=== PATIENT | male | born 1960 | race Caucasian/White ===

== ENCOUNTER 2020-12-31 09:36 | Emergency (ER) | payer BC ==
[~2020-12-31] VITALS: Ht 175.3 cm; Wt 81.8 kg
[~2020-12-31 09:36] MED LIST: HYDR-4353 PO
--- NOTE | 2020-12-31 09:48 | NUR ---
dr marvin at bedside.
[2020-12-31] MEDS ORDERED: LIDOcaine 1% 30ml preserv. free vial IJ ONE (09:55)
[2020-12-31] MEDS ORDERED: ceFAZolin 1gm IM kit IM ONE (09:55)
[2020-12-31] MEDS ORDERED: TETanus/Pertussis (Acell)/Diphther VAC/PF (Tdap-Adult) 0.5ml syringe IMVAC ONE (09:55)
[2020-12-31] MEDS ORDERED: NO HOME MEDS (11:09)
[2020-12-31 11:35] LABS: BASOPHILS % (AUTO) 0.4 % (0-1); EOSINOPHILS # (AUTO) 0.1 X10'3 (0-0.9); EOSINOPHILS % (AUTO) 1.4 % (0-6); HEMATOCRIT 44.7 % (42.0-52.0); HEMOGLOBIN 14.9 g/dl (14.0-17.9); LYMPHOCYTES # (AUTO) 0.8 X10'3 (1.1-4.8); LYMPHOCYTES % (AUTO) 11.1 % (21-51); MEAN CORPUSCULAR HEMOGLOBIN 29.5 PG (27.0-31.0); MEAN CORPUSCULAR HGB CONC 33.4 g/dL (33.0-36.5); MEAN CORPUSCULAR VOLUME 88.4 FL (78-98); MEAN PLATELET VOLUME 7.8 FL (7.4-10.4); MONOCYTES # (AUTO) 0.4 X10'3 (0-0.9); MONOCYTES % (AUTO) 4.7 % (2-12); NEUTROPHILS # (AUTO) 6.1 X10'3 (1.8-7.7); NEUTROPHILS % (AUTO) 82.4 % (42-75); PLATELET COUNT 216 X10'3 (140-440); RED BLOOD COUNT 5.06 X10'6 (4.70-6.10); RED CELL DISTRIBUTION WIDTH 14.6 % (11.5-14.5); WHITE BLOOD COUNT 7.4 X10'3 (4.5-11.0)
[2020-12-31 12:01] LABS: ALANINE AMINOTRANSFERASE 69 U/L (12-78); ALBUMIN 3.7 G/DL (3.4-5.0); ALKALINE PHOSPHATASE 90 IU/L (46-116); ANION GAP 10 (8-16); ASPARTATE AMINO TRANSFERASE 41 U/L (10-37); BILIRUBIN,TOTAL 0.4 MG/DL (0.1-1.0); BLOOD UREA NITROGEN 18 MG/DL (7-18); CALCIUM 8.7 MG/DL (8.5-10.1); CHLORIDE 105 MMOL/L (99-107); GLUCOSE 111 MG/DL (70-104); POTASSIUM 4.1 MMOL/L (3.5-5.1); SODIUM 141 MMOL/L (135-145); TOTAL CARBON DIOXIDE 26.2 MMOL/L (24-32); TOTAL PROTEIN 7.3 G/DL (6.4-8.2); eGFR 87 ML/MIN
[2020-12-31] MEDS ORDERED: LIDOcaine 0.5% (5mg/ml) 50ml vial ONE (14:29)
[2020-12-31] MEDS ORDERED: fentaNYL/PF 50MCG/1 ML 2ML syringe ONE ×2 (14:31→14:51)
[2020-12-31] MEDS ORDERED: midazolam 2 mg/2 ml injection ONE ×2 (14:31→14:54)
[2020-12-31] MEDS ORDERED: BUPIVAcaine/PF 2.5mg/ml (0.25%) 10ml vial ONE (15:15)
[2020-12-31] MEDS ORDERED: hydrALAZINE 20mg/ml inj. IV ONE (15:22)
[2020-12-31] MEDS ORDERED: propofol inj 20 ML IV ONE (15:22)
[2020-12-31 15:30] VITALS: BP 116/75
--- NOTE | 2020-12-31 15:30 | NUR ---
Received from OR via BED, accompanied by Anesthesiologist DR CUMMINGS and report given by Anesthesiolgist. PATIENT A&OX4, DENIES PAIN, V/S WNL, NEUROVASCULAR CHECKS INTACT, 20G PIV LUE, SCD ON, SPLINT DRESSING TO RIGHT WRIST/HAND CDI ELEVATED WITH ICEBAG APPLIED.
[2020-12-31 15:40] VITALS: BP 119/74
[2020-12-31] MEDS ORDERED: morphine 2 MG/ML inj. syringe IV PRN (15:40)
[2020-12-31] MEDS ORDERED: proCHLORperazine 10 MG/2 ml inj IV PRN (15:40)
[2020-12-31] MEDS ORDERED: morphine 4 MG/ML inj SYRINge IV PRN (15:40)
[2020-12-31] MEDS ORDERED: ringers solution, lacted 1,000 ML IV SCH (15:40)
[2020-12-31] MEDS ORDERED: ondansetron/PF 4mg/2ml inj IV PRN (15:40)
[2020-12-31] MEDS ORDERED: meperidine/PF 25mg/ml syringe IV PRN ×3 (15:40)
[2020-12-31 15:50] VITALS: BP 121/79
[2020-12-31 16:00] VITALS: BP 123/74
[2020-12-31 16:10] VITALS: BP 133/71
--- NOTE | 2020-12-31 16:10 | NUR ---
PATIENT A&OX4, DENIES PAIN, V/S WNL, NEUROVASCULAR CHECKS INTACT, 20G PIV LUE D/C, SCD OFF, SPLINT/ DRESSING TO RIGHT WRIST CDI ELEVATED WITH ICEBAG APPLIED. I HAVE REVIEWED D/C INSTRUCTIONS WITH PATIENT AND FAMILY AND THEY HAVE VERBALIZED UNDERSTANDING. PATIENT D/C HOME WITH ALL BELONGINGS AND FAMILY GAVE TRANSPORT HOME.
== END 2020-12-31 16:10 | disposition home or self-care (01) ==
LOC: ER 09:36
DX: S62.620A Displaced fracture of middle phalanx of right index finger, initial encounter for closed fracture (principal); S61.210A Laceration without foreign body of right index finger without damage to nail, initial encounter; S61.212A Laceration without foreign body of right middle finger without damage to nail, initial encounter; Z20.822 Contact with and (suspected) exposure to COVID-19; G89.29 Other chronic pain; Z20.3 Contact with and (suspected) exposure to rabies; Z98.890 Other specified postprocedural states; Z87.442 Personal history of urinary calculi; Z88.1 Allergy status to other antibiotic agents; Z88.8 Allergy status to other drugs, medicaments and biological substances; X58.XXXA Exposure to other specified factors, initial encounter; Y93.89 Activity, other specified; Y92.89 Other specified places as the place of occurrence of the external cause; Y99.8 Other external cause status
CPT/HCPCS: 26756; 26951; 36415; 73140; 80053; 85025; 87635; 90471; 90715; 93005; 96372; 99285; C1713; C9803; J0360; J0690; J2001; J2250; J2704; J3010; J3490; A4215; A4615; A7000

== ENCOUNTER 2021-04-30 15:19 | Inpatient (IN) | payer BC, OTHER ==
[~2021-04-30] VITALS: Ht 175.3 cm; Wt 82.1 kg
[~2021-04-30 15:19] MED LIST changes: -HYDR-4353 PO; +LIDOcaine 2% (20 mg/ml) 5ml cardiac syringe ONE; +MAGNESIUM SULFATE 4 MEQ/ML (5gm/10ml) injection ONE; +NO HOME MEDS; +NORepinephrine 1 mg/ml inj IV ONE; +albumin (human) 25% 100 ML IV solution IV ONE; +aminocaproic acid 250 MG/1 ML inj. ONE; +calcium chloride 100 MG/1 ML inj IV ONE; +heparin 1,000 units/ml 10ml inj ONE; +heparin 10,000 units/1 ML INJ ONE; +methylPREDNISolone sod succ 1000mg vial ONE; +papaverine 30 mg/ml 2ml inj. ONE; +sodium bicarbonate (8.4%) 1 mEq/ml syringe ONE
[2021-04-30 15:45] LABS: BASOPHILS % (AUTO) 0.6 % (0-1); EOSINOPHILS # (AUTO) 0.2 X10'3 (0-0.9); EOSINOPHILS % (AUTO) 2.3 % (0-6); HEMATOCRIT 43.9 % (42.0-52.0); HEMOGLOBIN 14.9 g/dl (14.0-17.9); LYMPHOCYTES # (AUTO) 1.5 X10'3 (1.1-4.8); LYMPHOCYTES % (AUTO) 21.2 % (21-51); MEAN CORPUSCULAR HEMOGLOBIN 30.2 PG (27.0-31.0); MEAN CORPUSCULAR HGB CONC 33.8 g/dL (33.0-36.5); MEAN CORPUSCULAR VOLUME 89.3 FL (78-98); MEAN PLATELET VOLUME 7.8 FL (7.4-10.4); MONOCYTES # (AUTO) 0.9 X10'3 (0-0.9); MONOCYTES % (AUTO) 13.3 % (2-12); NEUTROPHILS # (AUTO) 4.3 X10'3 (1.8-7.7); NEUTROPHILS % (AUTO) 62.6 % (42-75); PLATELET COUNT 240 X10'3 (140-440); RED BLOOD COUNT 4.92 X10'6 (4.70-6.10); RED CELL DISTRIBUTION WIDTH 14.3 % (11.5-14.5); WHITE BLOOD COUNT 6.9 X10'3 (4.5-11.0)
[2021-04-30 15:58] LABS: ALANINE AMINOTRANSFERASE 45 U/L (12-78); ALBUMIN 3.6 G/DL (3.4-5.0); ALBUMIN/GLOBULIN RATIO 0.9 (1.1-1.5); ALKALINE PHOSPHATASE 99 IU/L (46-116); ANION GAP 7 (8-16); ASPARTATE AMINO TRANSFERASE 25 U/L (10-37); BILIRUBIN,TOTAL 0.4 MG/DL (0.1-1.0); BLOOD UREA NITROGEN 21 MG/DL (7-18); BUN/CREATININE RATIO 19.6 (5.4-32.0); CHLORIDE 106 MMOL/L (99-107); CREATININE 1.07 MG/DL (0.60-1.10); GLUCOSE 97 MG/DL (70-104); POTASSIUM 3.7 MMOL/L (3.5-5.1); SODIUM 142 MMOL/L (135-145); TOTAL CARBON DIOXIDE 28.8 MMOL/L (24-32); TOTAL PROTEIN 7.5 G/DL (6.4-8.2); eGFR 71 ML/MIN
[2021-04-30] MEDS ORDERED: aspirin 81mg tab.chew PO ONE (16:10)
[2021-04-30] MEDS ORDERED: enoxaparin 100mg/ml syringe SUBCUT ONE (16:20)
[2021-04-30] MEDS ORDERED: NITR0.4T51 SL (16:30)
[2021-04-30] MEDS ORDERED: DONE-46 PO (16:30)
[2021-04-30] MEDS ORDERED: ATOR20TA66 PO (16:30)
[2021-04-30] MEDS ORDERED: GABA300C PO (16:30)
[2021-04-30] MEDS ORDERED: ondansetron/PF 4mg/2ml inj IV PRN (18:20)
[2021-04-30] MEDS ORDERED: bisacodyl 10mg suppository rectal RC PRN (18:20)
[2021-04-30] MEDS ORDERED: acetaminophen 650mg rectal suppository RC PRN (18:20)
[2021-04-30] MEDS ORDERED: nitroGLYCERIN 0.4mg SUBLingual tab SL PRN ×2 (18:20→18:25)
[2021-04-30] MEDS ORDERED: HYDROcodone/acetaminophen 5mg/325mg tablet PO PRN (18:20)
[2021-04-30] MEDS ORDERED: mag hydrox/Alum hydrox/simeth 30ml oral suspension PO PRN (18:20)
[2021-04-30] MEDS ORDERED: magnesium hydroxide 30ml (MOM) UD suspension PO PRN (18:20)
[2021-04-30] MEDS ORDERED: potassium Cl 40MEQ/1/2NS 520ml 520 ML IV PRN ×2 (18:20)
[2021-04-30] MEDS ORDERED: magnesium Cl slow-release 64mg tablet PO PRN (18:20)
[2021-04-30] MEDS ORDERED: acetaminophen 325mg tablet PO PRN ×2 (18:20)
[2021-04-30] MEDS ORDERED: morphine 2 MG/ML inj. syringe IV PRN ×2 (18:20)
[2021-04-30] MEDS ORDERED: potassium Cl 20 mEq SR tablet PO PRN ×2 (18:20)
[2021-04-30] MEDS ORDERED: magnesium 2GM in 50ml NS 50 ML IV PRN (18:20)
[2021-04-30] MEDS ORDERED: HYDROcodone/acetaminophen 10/325mg tab PO PRN (18:20)
[2021-04-30] MEDS ORDERED: magnesium 4gm in 100ml NS 100 ML IV PRN (18:20)
[2021-04-30] MEDS ORDERED: diphenhydrAMINE 25mg capsule PO PRN (18:20)
[2021-04-30] MEDS ORDERED: aminophylline 250mg/10ml inj. IV PRN (18:25)
[2021-04-30] MEDS ORDERED: regadenoson 0.4mg/5ml syringe IV PRN (18:25)
[2021-04-30] MEDS ORDERED: metoprolol tartrate 1mg/ml inj IV PRN (18:25)
[2021-04-30] MEDS: normal saline 1000ml 1,000 ML IV SCH (18:36)
[2021-04-30] MEDS: atorvastatin 20mg tablet PO SCH (18:46)
[2021-04-30 19:03] LABS: HEMOGLOBIN A1C 5.3 % (4.5-6.2)
--- NOTE | 2021-04-30 19:12 | NUR ---
ASSISTING RN WITH PT CARE, REPORT CALLED TO JOSÉ MANUEL SHEPARD
[2021-04-30] MEDS: enoxaparin 80mg/0.8ml syringe SUBCUT SCH (19:58)
[2021-04-30 20:00] VITALS: BP 128/86
[2021-04-30] MEDS: K and/or MAG REPLACEMENT MC SCH (20:00)
--- NOTE | 2021-04-30 20:00 | NUR ---
Md perez gave telephone order to discontinue stress test in am.
--- NOTE | 2021-04-30 20:00 | NUR ---
I have received report from DREA Sarabia and had the opportunity to ask questions and assume patient care.
--- NOTE | 2021-04-30 20:00 | NUR ---
MD Goyal called regarding patient would like to do cardiac cath procedure and possible stent in AM. PT NPO at midnight and hold Lovenox in AM. Will continue to monitor
[2021-04-30] MEDS: donepezil 5mg tablet PO SCH (20:06)
[2021-04-30] MEDS: carVEDilol 3.125mg tablet PO SCH (20:07)
--- NOTE | 2021-04-30 21:39 | NUR ---
MD Feng notified of critical troponin 0.95 no change in orders will continue to monitor
[2021-04-30 22:00] VITALS: BP 114/66
[2021-05-01] VITALS (7 sets, daily range): BP systolic 88–105; BP diastolic 51–73
[2021-05-01 03:43] LABS: ALANINE AMINOTRANSFERASE 32 U/L (12-78); ALBUMIN 2.8 G/DL (3.4-5.0); ALBUMIN/GLOBULIN RATIO 0.9 (1.1-1.5); ALKALINE PHOSPHATASE 78 IU/L (46-116); ANION GAP 7 (8-16); ASPARTATE AMINO TRANSFERASE 23 U/L (10-37); BILIRUBIN,TOTAL 0.3 MG/DL (0.1-1.0); BLOOD UREA NITROGEN 22 MG/DL (7-18); BUN/CREATININE RATIO 23.2 (5.4-32.0); CALCIUM 8.1 MG/DL (8.5-10.1); CHLORIDE 107 MMOL/L (99-107); CREATININE 0.95 MG/DL (0.60-1.10); GLUCOSE 96 MG/DL (70-104); POTASSIUM 3.7 MMOL/L (3.5-5.1); SODIUM 140 MMOL/L (135-145); TOTAL CARBON DIOXIDE 26.1 MMOL/L (24-32); eGFR 81 ML/MIN
[2021-05-01 03:44] LABS: BASOPHILS % (AUTO) 0.7 % (0-1); EOSINOPHILS # (AUTO) 0.2 X10'3 (0-0.9); EOSINOPHILS % (AUTO) 3.3 % (0-6); HEMATOCRIT 41.3 % (42.0-52.0); HEMOGLOBIN 13.9 g/dl (14.0-17.9); LYMPHOCYTES # (AUTO) 1.8 X10'3 (1.1-4.8); LYMPHOCYTES % (AUTO) 28.5 % (21-51); MEAN CORPUSCULAR HEMOGLOBIN 30.5 PG (27.0-31.0); MEAN CORPUSCULAR HGB CONC 33.7 g/dL (33.0-36.5); MEAN CORPUSCULAR VOLUME 90.3 FL (78-98); MEAN PLATELET VOLUME 8.1 FL (7.4-10.4); MONOCYTES # (AUTO) 0.9 X10'3 (0-0.9); NEUTROPHILS # (AUTO) 3.2 X10'3 (1.8-7.7); NEUTROPHILS % (AUTO) 52.5 % (42-75); PLATELET COUNT 204 X10'3 (140-440); RED BLOOD COUNT 4.58 X10'6 (4.70-6.10); RED CELL DISTRIBUTION WIDTH 14.4 % (11.5-14.5); WHITE BLOOD COUNT 6.2 X10'3 (4.5-11.0)
[2021-05-01 03:47] LABS: CHOL/HDL RATIO 4.5 (0.00-4.99); CHOLESTEROL 152 MG/DL (0-200); HDL CHOLESTEROL 34 MG/DL (35-60); LDL CHOLESTEROL 93 MG/DL (50-100); MAGNESIUM 1.7 MG/DL (1.5-2.4); PHOSPHORUS 3.4 MG/DL (2.3-4.5); TRIGLYCERIDES 180 MG/DL (20-135)
--- NOTE | 2021-05-01 03:50 | NUR ---
MD Godwin notified of critical troponin 1.13 no changes or new orders, will continue to monitor.
[2021-05-01 04:25] LABS: CLARITY,URINE CLEAR (Clear); COLOR,URINE YELLOW (Yellow); GLUCOSE, URINE 100 mg/dl (Neg); KETONES,URINE NEGATIVE (Neg); LEUKOCYTE ESTERASE ,URINE NEGATIVE (Neg); NITRITES, URINE NEGATIVE (Neg); OCCULT BLOOD,URINE NEGATIVE (Neg); PROTEIN,URINE NEGATIVE (Neg); UROBILINOGEN,URINE 0.2 E.U/dL (0.2-1.0)
[2021-05-01 04:29] LABS: UA COLLECTION TYPE NON-SPECIFIED
--- NOTE | 2021-05-01 06:23 | NUR ---
Problems reprioritized. Patient report given, questions answered & plan of care reviewed with Chairity , RN.
--- NOTE | 2021-05-01 06:52 | NUR ---
Patient in room PCU 3013. I have received report from CHIVO SHEPARD and had the opportunity to ask questions and assume patient care.
[2021-05-01] MEDS: K and/or MAG REPLACEMENT MC SCH ×2 (07:02→20:00)
[2021-05-01] MEDS: normal saline 1000ml 1,000 ML IV SCH ×2 (07:03→21:00)
[2021-05-01] MEDS: carVEDilol 3.125mg tablet PO SCH ×2 (08:00→21:29)
[2021-05-01] MEDS ORDERED: metoprolol succinate 25mg (24-HOUR) SR. Tablet PO SCH (08:00)
[2021-05-01] MEDS ORDERED: isosorbide mononitrate 30mg tab.SR.24H PO SCH (08:00)
[2021-05-01] MEDS ORDERED: lisinopril 5mg tablet PO SCH (08:00)
[2021-05-01] MEDS: enoxaparin 80mg/0.8ml syringe SUBCUT SCH ×2 (08:00→20:00)
[2021-05-01] MEDS ORDERED: aspirin 81mg tablet.DR PO SCH (08:00)
[2021-05-01] MEDS: atorvastatin 20mg tablet PO SCH (08:26)
[2021-05-01] MEDS ORDERED: verapamil 2.5 mg/ml inj IV ONE (08:30)
[2021-05-01] MEDS ORDERED: nitroGLYCERIN-Tridil 50MG/D5W 250 ML IV ONE (08:30)
[2021-05-01] MEDS ORDERED: midazolam 1 mg/ML 2ml injection ONE (08:30)
[2021-05-01] MEDS ORDERED: LIDOcaine 1% (10mg/ml)w/preservative injection 20ml MDV ONE (08:30)
[2021-05-01] MEDS ORDERED: fentaNYL/PF 50MCG/1 ML 2ML syringe ONE (08:30)
[2021-05-01] MEDS ORDERED: heparin 1,000unit/ml 10ml vial 10 ML ONE (08:31)
[2021-05-01] MEDS ORDERED: iohexol 350MG/ML 100ml bottle IV ONE (08:31)
[2021-05-01] MEDS ORDERED: iohexol 350 MG/ML 50ML vial IV ONE (08:31)
[2021-05-01] MEDS ORDERED: acetaminophen 325mg tablet PO PRN (10:35)
[2021-05-01] MEDS ORDERED: proCHLORperazine 10 MG/2 ml inj IV PRN (10:35)
[2021-05-01] MEDS ORDERED: cyclobenzaprine 10mg tablet PO PRN ×2 (10:35→11:20)
[2021-05-01] MEDS ORDERED: OXAZEpam 15mg capsule PO PRN ×2 (10:35→11:20)
[2021-05-01] MEDS ORDERED: dextrose 50%-water 50ml dispensing syringe IV PRN (10:55)
[2021-05-01] MEDS ORDERED: insulin glargine (Lantus) pen - multi-dose SQ PRN (10:55)
[2021-05-01] MEDS ORDERED: MESSAGE TO NURSING PO ONE ×4 (10:55)
[2021-05-01] MEDS ORDERED: Insulin Reg/NS 100units/100mL 100 ML IV SCH ×2 (10:55→22:15)
[2021-05-01] MEDS ORDERED: MALTODEXTRIN/FRUCTOSE 0.68 KCAL/ML LIQUID 296ML BOTTLE PO ONE (10:55)
[2021-05-01] MEDS ORDERED: HYDROcodone/acetaminophen 10/325mg tab PO PRN (11:20)
[2021-05-01 11:56] LABS: PARTIAL THROMBOPLASTIN TIME 33 SECONDS (22-32)
[2021-05-01 12:00] LABS: CHOL/HDL RATIO 3.8 (0.00-4.99); CHOLESTEROL 130 MG/DL (0-200); HDL CHOLESTEROL 34 MG/DL (35-60); LDL CHOLESTEROL 79 MG/DL (50-100); TRIGLYCERIDES 108 MG/DL (20-135)
[2021-05-01 14:28] LABS: ABG BASE EXCESS -0.5 mmol/L (-2.0-2.0); ABG HCO3 24.1 mmol/L (22.0-26.0); ABG OXYGEN SATURATION 95.7 % (94-97); ABG PCO2 (T) 39.7 mmHg (35.0-48.0); ABG PO2 (T) 74.1 mmHg (75.0-100.0); ALLEN'S TEST POSITIVE; FCOHb 0.7 % (0.0-3.9); FMetHb 0.1 % (0.0-1.5); FO2Hb 94.9 % (94-97); TOTAL HEMOGLOBIN 14.2 G/dl (14.0-18.0)
[2021-05-01] MEDS ORDERED: docusate sod 100mg capsule PO SCH (20:00)
[2021-05-01] MEDS: donepezil 5mg tablet PO SCH (21:29)
[2021-05-02] VITALS (15 sets, daily range): BP systolic 91–149; BP diastolic 51–81
[2021-05-02] MEDS ORDERED: gabapentin 400mg capsule PO ONE (05:30)
[2021-05-02] MEDS ORDERED: Insulin Reg/NS 100units/100mL 100 ML IV SCH (05:30)
[2021-05-02] MEDS ORDERED: vancomycin/NS 1 GM ADD-VANTAGE 250 ML IV ONE (05:30)
[2021-05-02] MEDS ORDERED: metoprolol tartrate 12.5mg (1/2 tablet) PO SCH (05:30)
[2021-05-02] MEDS ORDERED: cefazolin/dext.iso 2gm/50ml 100 ML IV ONE (05:30)
[2021-05-02] MEDS ORDERED: mupirocin 2% nasal ointment 1gm UD NS ONE (06:00)
[2021-05-02] MEDS ORDERED: ceFAZolin 1000mg inj ONE (06:05)
--- NOTE | 2021-05-02 06:15 | NUR ---
Patient in room PCU 3020. I have received report from Destiny SHEPARD and had the opportunity to ask questions and assume patient care.
--- NOTE | 2021-05-02 06:27 | NUR ---
Problems reprioritized. Patient report given, questions answered & plan of care reviewed with Pamela SHEPARD.
--- NOTE | 2021-05-02 06:42 | NUR ---
Patient in room PCU 3020. I have received report from Vika SHEPARD and had the opportunity to ask questions and assume patient care.
[2021-05-02] MEDS ORDERED: heparin 10,000 units/1 ML INJ IR ONE (07:00)
[2021-05-02] MEDS ORDERED: papaverine 30 mg/ml 2ml inj. IA ONE (07:05)
[2021-05-02 07:19] LABS: BASOPHILS % (AUTO) 0.7 % (0-1); EOSINOPHILS # (AUTO) 0.2 X10'3 (0-0.9); EOSINOPHILS % (AUTO) 2.2 % (0-6); HEMATOCRIT 41.4 % (42.0-52.0); HEMOGLOBIN 14.1 g/dl (14.0-17.9); LYMPHOCYTES # (AUTO) 1.5 X10'3 (1.1-4.8); LYMPHOCYTES % (AUTO) 20.7 % (21-51); MEAN CORPUSCULAR HEMOGLOBIN 30.3 PG (27.0-31.0); MEAN CORPUSCULAR VOLUME 89.1 FL (78-98); MONOCYTES # (AUTO) 0.7 X10'3 (0-0.9); NEUTROPHILS # (AUTO) 4.7 X10'3 (1.8-7.7); NEUTROPHILS % (AUTO) 66.4 % (42-75); PLATELET COUNT 222 X10'3 (140-440); RED BLOOD COUNT 4.65 X10'6 (4.70-6.10); RED CELL DISTRIBUTION WIDTH 14.6 % (11.5-14.5); WHITE BLOOD COUNT 7.1 X10'3 (4.5-11.0)
[2021-05-02] MEDS: carVEDilol 3.125mg tablet PO SCH (07:22)
[2021-05-02 07:45] LABS: ALANINE AMINOTRANSFERASE 37 U/L (12-78); ALBUMIN/GLOBULIN RATIO 0.8 (1.1-1.5); ALKALINE PHOSPHATASE 85 IU/L (46-116); ANION GAP 8 (8-16); ASPARTATE AMINO TRANSFERASE 20 U/L (10-37); BILIRUBIN,TOTAL 0.4 MG/DL (0.1-1.0); BLOOD UREA NITROGEN 15 MG/DL (7-18); BUN/CREATININE RATIO 17.4 (5.4-32.0); CALCIUM 8.1 MG/DL (8.5-10.1); CHLORIDE 105 MMOL/L (99-107); CREATININE 0.86 MG/DL (0.60-1.10); GLUCOSE 92 MG/DL (70-104); PHOSPHORUS 2.8 MG/DL (2.3-4.5); POTASSIUM 4.1 MMOL/L (3.5-5.1); SODIUM 139 MMOL/L (135-145); TOTAL CARBON DIOXIDE 26.5 MMOL/L (24-32); TOTAL PROTEIN 6.6 G/DL (6.4-8.2); eGFR > 90 ML/MIN
[2021-05-02] MEDS ORDERED: SUFENTANIL CITRATE 50 MCG/ML 2ml ampule IV ONE (07:50)
[2021-05-02] MEDS ORDERED: rocuronium 10mg/ml inj IV ONE ×3 (07:50→07:56)
[2021-05-02] MEDS ORDERED: MIDAZolam 1 MG/ML 5ML VIAL ONE (07:50)
[2021-05-02] MEDS ORDERED: protamine sulf. 10mg/ml inj. IV ONE (07:56)
[2021-05-02] MEDS ORDERED: sevoflurane 250ml liquid IH ONE (07:56)
[2021-05-02] MEDS ORDERED: LORazepam 2 mg/ml vial IV ONE (08:00)
[2021-05-02] MEDS ORDERED: famotidine 20mg tablet PO ONE (08:00)
[2021-05-02 08:38] LABS: ABG HCO3 25.8 mmol/L (22.0-26.0); ABG OXYGEN SATURATION 99.4 % (94-97); ABG PCO2 37.7 mmHg (35.0-48.0); CL (ABG) 106 mmol/L (98-110); FCOHb 0.8 % (0.0-3.9); FMetHb 0.3 % (0.0-1.5); FO2Hb 98.3 % (94-97); GLUCOSE (ABG) 92 mg/dl (70-105); IONIZED CA (ABG) 1.14 mmol/L (1.10-1.43); TOTAL HEMOGLOBIN 13.1 G/dl (14.0-18.0)
[2021-05-02] MEDS ORDERED: propofol inj 20 ML IV ONE (09:13)
[2021-05-02 09:45] LABS: ABG HCO3 VENOUS 23.1 mmol/L (21.0-28.0); ABG PCO2 VENOUS 45.5 mmHg (41.0-54.0); ABG PO2 VENOUS 44.1 mmHg (25.0-35.0); CL (ABG) 104 mmol/L (98-110); FCOHb VENOUS 0.8 %; FHHb VENOUS 19.5 %; FMetHb VENOUS 0.3 % (0.0 - 0.5); FO2Hb VENOUS 79.4 %; GLUCOSE (ABG) 97 mg/dl (70-105); IONIZED CA (ABG) 1.11 mmol/L (1.10-1.43); K (ABG) 4.3 mmol/L (3.5-5.0); TOTAL HEMOGLOBIN 13.2 G/dl (14.0-18.0)
[2021-05-02] MEDS ORDERED: MESSAGE TO NURSING PO ONE (10:00)
[2021-05-02 10:26] LABS: ABG BASE EXCESS VENOUS 0.8 mmol/L (-2.0 - 2.0); ABG HCO3 VENOUS 25.1 mmol/L (21.0-28.0); ABG PCO2 VENOUS 38.9 mmHg (41.0-54.0); ABG PO2 VENOUS 47.5 mmHg (25.0-35.0); CL (ABG) 102 mmol/L (98-110); FCOHb VENOUS 0.4 %; FHHb VENOUS 12.9 %; FMetHb VENOUS 0.3 % (0.0 - 0.5); FO2Hb VENOUS 86.4 %; GLUCOSE (ABG) 101 mg/dl (70-105); IONIZED CA (ABG) 1.02 mmol/L (1.10-1.43); K (ABG) 5.6 mmol/L (3.5-5.0); TOTAL HEMOGLOBIN 10.5 G/dl (14.0-18.0)
[2021-05-02 10:58] LABS: ABG BASE EXCESS 1.3 mmol/L (-2.0-2.0); ABG HCO3 25.3 mmol/L (22.0-26.0); ABG OXYGEN SATURATION 99.7 % (94-97); ABG PCO2 37.9 mmHg (35.0-48.0); ABG PO2 331.3 mmHg (75.0-100.0); CL (ABG) 104 mmol/L (98-110); FCOHb 0.3 % (0.0-3.9); FMetHb 0.3 % (0.0-1.5); FO2Hb 99.1 % (94-97); GLUCOSE (ABG) 130 mg/dl (70-105); IONIZED CA (ABG) 1.04 mmol/L (1.10-1.43); K (ABG) 5.5 mmol/L (3.5-5.0); TOTAL HEMOGLOBIN 11.3 G/dl (14.0-18.0)
[2021-05-02 11:37] LABS: ABG HCO3 VENOUS 27.2 mmol/L (21.0-28.0); ABG PCO2 VENOUS 45.1 mmHg (41.0-54.0); ABG PO2 VENOUS 44.2 mmHg (25.0-35.0); CL (ABG) 104 mmol/L (98-110); FCOHb VENOUS 0.7 %; FHHb VENOUS 14.9 %; FMetHb VENOUS 0.3 % (0.0 - 0.5); FO2Hb VENOUS 84.1 %; GLUCOSE (ABG) 123 mg/dl (70-105); IONIZED CA (ABG) 1.26 mmol/L (1.10-1.43); TOTAL HEMOGLOBIN 11.9 G/dl (14.0-18.0)
--- NOTE | 2021-05-02 12:00 | NUR ---
Attempted to call report to CICU x2. Still awaiting for Call back from receiving nurse.
[2021-05-02] MEDS ORDERED: pantoprazole 40 MG vial IV ONE (12:10)
[2021-05-02] MEDS ORDERED: sodium phosphate inj. 30 MMOL in dextrose 5%-water 250 ML IV PRN (12:10)
[2021-05-02] MEDS ORDERED: morphine 4 MG/ML inj SYRINge IV PRN (12:10)
[2021-05-02] MEDS ORDERED: magnesium hydroxide 30ml (MOM) UD suspension PO PRN (12:10)
[2021-05-02] MEDS ORDERED: normal saline 250ml IV soln 250 ML IV PRN (12:10)
[2021-05-02] MEDS ORDERED: potassium Cl 40MEQ/1/2NS 520ml 520 ML IV PRN (12:10)
[2021-05-02] MEDS ORDERED: potassium CL 10mEq/100ml bag 100 ML IV PRN (12:10)
[2021-05-02] MEDS: Insulin Reg/NS 100units/100mL 100 ML IV SCH (12:10)
[2021-05-02] MEDS ORDERED: acetaminophen 325mg tablet PO PRN ×2 (12:10)
[2021-05-02] MEDS ORDERED: magnesium 4gm in 100ml NS 100 ML IV PRN (12:10)
[2021-05-02] MEDS ORDERED: niCARDipine-NS 40mg/200ml IVPB 200 ML IV PRN (12:10)
[2021-05-02] MEDS ORDERED: Neutra Phos packet PO PRN (12:10)
[2021-05-02] MEDS ORDERED: insulin glargine (Lantus) pen - multi-dose SQ PRN (12:10)
[2021-05-02] MEDS ORDERED: HYDROcodone/acetaminophen 10/325mg tab PO PRN ×2 (12:10)
[2021-05-02] MEDS ORDERED: magnesium citrate 296ml oral solution PO PRN (12:10)
[2021-05-02] MEDS ORDERED: potassium Cl 40MEQ/250ML bag 250 ML IV PRN (12:10)
[2021-05-02] MEDS ORDERED: sodium phosphate inj. 15 MMOL in dextrose 5%-water 250 ML IV PRN (12:10)
[2021-05-02] MEDS ORDERED: bisacodyl 10mg suppository rectal RC PRN (12:10)
[2021-05-02] MEDS ORDERED: nitroGLYCERIN-Tridil 50MG/D5W 250 ML IV PRN (12:10)
[2021-05-02] MEDS ORDERED: mineral oil 133ml enema RC PRN (12:10)
[2021-05-02] MEDS ORDERED: potassium Cl 20 mEq SR tablet PO PRN (12:10)
[2021-05-02] MEDS ORDERED: DOPamine 400mg/D5W 250ml 250 ML IV PRN (12:10)
[2021-05-02] MEDS ORDERED: metoclopramide 5 mg/ml inj IV PRN (12:10)
[2021-05-02] MEDS ORDERED: ondansetron/PF 4mg/2ml inj IV PRN (12:10)
[2021-05-02] MEDS ORDERED: dextrose 50%-water 50ml dispensing syringe IV PRN (12:10)
--- NOTE | 2021-05-02 12:26 | NUR ---
CABG Consult: Pt s/p CABGx3 and would benefit from CABG/HH diet eds once stable post-op. Addendum: 05/02/21 at [address] Amended: Links added.
--- NOTE | 2021-05-02 12:30 | NUR ---
Received to room , accompanied by MDs and surgical crew. Placed on ventilator, to gambling monitor, arterial line and PA line pressure monitored. Chest tubes to suction at 20 cm. Rowland cath to gravity drainage. Dressings are dry and intact. See assessment record. All vasoactive drugs are infusing via central line.
[2021-05-02 12:46] LABS: ABG BASE EXCESS -0.7 mmol/L (-2.0-2.0); ABG HCO3 24.3 mmol/L (22.0-26.0); ABG OXYGEN SATURATION 99.2 % (94-97); ABG PCO2 (T) 41.3 mmHg (35.0-48.0); ABG PO2 (T) 178.6 mmHg (75.0-100.0); FCOHb 0.4 % (0.0-3.9); FMetHb 0.5 % (0.0-1.5); FO2Hb 98.3 % (94-97); RESPIRATORY RATE 12 b/min; TIDAL VOLUME 500 mL; TOTAL HEMOGLOBIN 15.2 G/dl (14.0-18.0)
[2021-05-02 12:57] LABS: BASOPHILS % (AUTO) 0.2 % (0-1); EOSINOPHILS % (AUTO) 0.3 % (0-6); HEMATOCRIT 41.7 % (42.0-52.0); HEMOGLOBIN 14.1 g/dl (14.0-17.9); LYMPHOCYTES # (AUTO) 0.8 X10'3 (1.1-4.8); LYMPHOCYTES % (AUTO) 7.9 % (21-51); MEAN CORPUSCULAR HEMOGLOBIN 29.9 PG (27.0-31.0); MEAN CORPUSCULAR HGB CONC 33.8 g/dL (33.0-36.5); MEAN CORPUSCULAR VOLUME 88.5 FL (78-98); MONOCYTES # (AUTO) 0.4 X10'3 (0-0.9); MONOCYTES % (AUTO) 4.3 % (2-12); NEUTROPHILS # (AUTO) 8.4 X10'3 (1.8-7.7); NEUTROPHILS % (AUTO) 87.3 % (42-75); PLATELET COUNT 154 X10'3 (140-440); RED BLOOD COUNT 4.71 X10'6 (4.70-6.10); RED CELL DISTRIBUTION WIDTH 14.7 % (11.5-14.5); WHITE BLOOD COUNT 9.6 X10'3 (4.5-11.0)
[2021-05-02] MEDS: sodium chloride 0.45% 1,000 ML IV SCH (13:00)
[2021-05-02 13:08] LABS: ALANINE AMINOTRANSFERASE 28 U/L (12-78); ALBUMIN 2.9 G/DL (3.4-5.0); ALBUMIN/GLOBULIN RATIO 1.1 (1.1-1.5); ALKALINE PHOSPHATASE 68 IU/L (46-116); ANION GAP 8 (8-16); ASPARTATE AMINO TRANSFERASE 31 U/L (10-37); BILIRUBIN,TOTAL 1.1 MG/DL (0.1-1.0); BLOOD UREA NITROGEN 12 MG/DL (7-18); BUN/CREATININE RATIO 14.5 (5.4-32.0); CALCIUM 7.9 MG/DL (8.5-10.1); CHLORIDE 108 MMOL/L (99-107); CREATININE 0.83 MG/DL (0.60-1.10); GLUCOSE 131 MG/DL (70-104); MAGNESIUM 3.5 MG/DL (1.5-2.4); PHOSPHORUS 1.4 MG/DL (2.3-4.5); POTASSIUM 4.2 MMOL/L (3.5-5.1); SODIUM 141 MMOL/L (135-145); TOTAL PROTEIN 5.6 G/DL (6.4-8.2); eGFR > 90 ML/MIN
[2021-05-02] MEDS: gabapentin 300mg capsule PO SCH ×2 (13:18→20:17)
[2021-05-02 13:36] LABS: PARTIAL THROMBOPLASTIN TIME 28 SECONDS (22-32)
[2021-05-02] MEDS: potassium Cl 20mEq/100mL bag 100 ML IV PRN ×4 (14:25→21:11)
--- NOTE | 2021-05-02 14:30 | NUR ---
Received a call from Radiologist Dr. Bauer. He told me that Og needed to be advanced 10 cm. This had already been done. He reported that ETT and PA line placement was optimal. Right IJ central line was "veering to the left", and the tip does not terminate in the SVC. I called Dr Schmitt to report CXR findings. Dr Schmitt reviewed CXR and called back and stated that the Central Line terminated in the innomiate vein and that this was fine as it is still central. He instructed nursing to avoid using the central line if possible and to use PA line for infusiopns.
[2021-05-02] MEDS: ceFAZolin/D5W- 1GM premix 50 ML IV SCH (16:34)
[2021-05-02] MEDS: morphine 4 MG/ML inj SYRINge IV PRN (16:40)
[2021-05-02] MEDS: albumin (Human) 5% 250ml 250 ML IV PRN ×2 (16:42→18:49)
[2021-05-02 17:11] LABS: ABG BASE EXCESS -3.3 mmol/L (-2.0-2.0); ABG OXYGEN SATURATION 98.6 % (94-97); ABG PCO2 (T) 36.2 mmHg (35.0-48.0); ABG PO2 (T) 120.5 mmHg (75.0-100.0); FCOHb 0.4 % (0.0-3.9); FMetHb 0.4 % (0.0-1.5); FO2Hb 97.8 % (94-97); PATIENT TEMPERATURE 37.2; RESPIRATORY RATE 15 b/min; TIDAL VOLUME 560 mL; TOTAL HEMOGLOBIN 14.3 G/dl (14.0-18.0)
[2021-05-02 18:09] LABS: BASOPHILS % (AUTO) 0 % (0-1); EOSINOPHILS % (AUTO) 0 % (0-6); HEMATOCRIT 39.9 % (42.0-52.0); HEMOGLOBIN 13.4 g/dl (14.0-17.9); LYMPHOCYTES # (AUTO) 0.3 X10'3 (1.1-4.8); MEAN CORPUSCULAR HEMOGLOBIN 30.6 PG (27.0-31.0); MEAN CORPUSCULAR HGB CONC 33.7 g/dL (33.0-36.5); MEAN CORPUSCULAR VOLUME 90.7 FL (78-98); MEAN PLATELET VOLUME 8.1 FL (7.4-10.4); MONOCYTES # (AUTO) 0.3 X10'3 (0-0.9); MONOCYTES % (AUTO) 2.5 % (2-12); NEUTROPHILS # (AUTO) 9.9 X10'3 (1.8-7.7); NEUTROPHILS % (AUTO) 94.5 % (42-75); PLATELET COUNT 173 X10'3 (140-440); RED CELL DISTRIBUTION WIDTH 14.6 % (11.5-14.5); WHITE BLOOD COUNT 10.5 X10'3 (4.5-11.0)
[2021-05-02 18:23] LABS: ALBUMIN 2.8 G/DL (3.4-5.0); ANION GAP 10 (8-16); BLOOD UREA NITROGEN 12 MG/DL (7-18); BUN/CREATININE RATIO 10.8 (5.4-32.0); CALCIUM 7.2 MG/DL (8.5-10.1); CHLORIDE 109 MMOL/L (99-107); CREATININE 1.11 MG/DL (0.60-1.10); GLUCOSE 142 MG/DL (70-104); MAGNESIUM 2.3 MG/DL (1.5-2.4); PHOSPHORUS 3.4 MG/DL (2.3-4.5); POTASSIUM 3.8 MMOL/L (3.5-5.1); SODIUM 142 MMOL/L (135-145); TOTAL CARBON DIOXIDE 23.5 MMOL/L (24-32); eGFR 68 ML/MIN
--- NOTE | 2021-05-02 18:25 | NUR ---
Problems reprioritized. Patient report given, questions answered & plan of care reviewed with DREA Pino.
--- NOTE | 2021-05-02 18:33 | NUR ---
Patient in room CICU 2010. I have received report from DREA Edouard and had the opportunity to ask questions and assume patient care.
[2021-05-02] MEDS: magnesium 2GM in 50ml NS 50 ML IV PRN (19:15)
[2021-05-02] MEDS ORDERED: mupirocin 2% ointment 22GM NS SCH (20:00)
[2021-05-02] MEDS: mupirocin 2% nasal ointment 1gm UD NS SCH (20:17)
[2021-05-02] MEDS: atorvastatin 10mg tablet PO SCH (20:17)
[2021-05-02] MEDS: sennosides/docusate sodium tablet PO SCH (20:17)
[2021-05-02] MEDS: vancomycin/NS 1 GM ADD-VANTAGE 250 ML IV SCH (20:17)
[2021-05-03] VITALS (23 sets, daily range): BP systolic 105–158; BP diastolic 55–78
[2021-05-03] MEDS: ceFAZolin/D5W- 1GM premix 50 ML IV SCH ×4 (00:06→23:58)
[2021-05-03] MEDS: morphine 4 MG/ML inj SYRINge IV PRN (01:34)
[2021-05-03 03:45] LABS: BASOPHILS % (AUTO) 0 % (0-1); EOSINOPHILS % (AUTO) 0 % (0-6); HEMATOCRIT 37.3 % (42.0-52.0); HEMOGLOBIN 12.3 g/dl (14.0-17.9); LYMPHOCYTES # (AUTO) 0.3 X10'3 (1.1-4.8); LYMPHOCYTES % (AUTO) 2.4 % (21-51); MEAN CORPUSCULAR HEMOGLOBIN 29.4 PG (27.0-31.0); MEAN CORPUSCULAR HGB CONC 32.8 g/dL (33.0-36.5); MEAN CORPUSCULAR VOLUME 89.5 FL (78-98); MEAN PLATELET VOLUME 8.4 FL (7.4-10.4); MONOCYTES # (AUTO) 0.6 X10'3 (0-0.9); MONOCYTES % (AUTO) 3.8 % (2-12); NEUTROPHILS # (AUTO) 13.6 X10'3 (1.8-7.7); NEUTROPHILS % (AUTO) 93.8 % (42-75); PLATELET COUNT 172 X10'3 (140-440); RED BLOOD COUNT 4.17 X10'6 (4.70-6.10); RED CELL DISTRIBUTION WIDTH 14.8 % (11.5-14.5); WHITE BLOOD COUNT 14.5 X10'3 (4.5-11.0)
[2021-05-03 04:01] LABS: PARTIAL THROMBOPLASTIN TIME 28 SECONDS (22-32)
[2021-05-03 04:09] LABS: ALANINE AMINOTRANSFERASE 29 U/L (12-78); ALBUMIN/GLOBULIN RATIO 1.1 (1.1-1.5); ALKALINE PHOSPHATASE 53 IU/L (46-116); ANION GAP 7 (8-16); ASPARTATE AMINO TRANSFERASE 46 U/L (10-37); BILIRUBIN,TOTAL 0.4 MG/DL (0.1-1.0); BLOOD UREA NITROGEN 12 MG/DL (7-18); BUN/CREATININE RATIO 13.2 (5.4-32.0); CALCIUM 7.2 MG/DL (8.5-10.1); CHLORIDE 108 MMOL/L (99-107); CREATININE 0.91 MG/DL (0.60-1.10); GLUCOSE 128 MG/DL (70-104); MAGNESIUM 2.3 MG/DL (1.5-2.4); PHOSPHORUS 3.6 MG/DL (2.3-4.5); POTASSIUM 4.2 MMOL/L (3.5-5.1); SODIUM 140 MMOL/L (135-145); TOTAL CARBON DIOXIDE 25.3 MMOL/L (24-32); TOTAL PROTEIN 5.7 G/DL (6.4-8.2); eGFR 85 ML/MIN
[2021-05-03] MEDS: magnesium 2GM in 50ml NS 50 ML IV PRN (04:24)
[2021-05-03] MEDS: potassium Cl 20mEq/100mL bag 100 ML IV PRN ×2 (04:24→05:35)
--- NOTE | 2021-05-03 06:15 | NUR ---
Problems reprioritized. Patient report given, questions answered & plan of care reviewed with DREA Sears.
[2021-05-03] MEDS: sennosides/docusate sodium tablet PO SCH ×2 (08:59→20:43)
[2021-05-03] MEDS: mupirocin 2% nasal ointment 1gm UD NS SCH ×2 (08:59→20:44)
[2021-05-03] MEDS: gabapentin 300mg capsule PO SCH ×3 (09:00→20:43)
[2021-05-03] MEDS: aspirin 325mg tablet, delayed-release (Ecotrin) PO SCH (09:00)
[2021-05-03] MEDS: HYDROcodone/acetaminophen 5mg/325mg tablet PO PRN ×2 (09:00→19:29)
[2021-05-03] MEDS: metoprolol tartrate 12.5mg (1/2 tablet) PO SCH ×2 (09:01→20:45)
[2021-05-03] MEDS: vancomycin/NS 1 GM ADD-VANTAGE 250 ML IV SCH ×2 (09:19→20:43)
[2021-05-03 10:02] LABS: ACTIVATED CLOTTING TIME 122 SEC (101-148)
[2021-05-03 10:03] LABS: ACTIVATED CLOTTING TIME 122 SEC (101-148)
--- NOTE | 2021-05-03 11:37 | NUR ---
Nutrition Consult "pt s/p CABG says eats hourly at home": Pt PO 100% NCS diet which is now accidentally cancelled in EMR. RAHEEM d/w RN regarding advancement to heart healthy diet post-op if MD agreeable. Pt PO 100% meals eats hourly at home and has voracious appetite and receiving frequent snacks from nourishment room per RN. Will send double eggs WB, double proteins BIDLD, and sandwich BID at 10am/2pm since per PA request. Dietary notified. RD recommends Zachery shake BIDLD for wound healing needs as well since pt can keep to drink around meal times as well; notified. Rec: 1. advance to heart healthy diet post-op; double eggs WB, double meats BIDLD; sandwich 10am/2pm for additional food per PA request 2. Zachery shake BIDLD for wound healing; can sip around mealtimes as well Addendum: 05/03/21 at [address] Amended: Links added.
[2021-05-03] MEDS: JUVEN Shake w/Arg/Glut/Ca2+Bmb (Juven 19.3gm) pkt 240ml PO SCH ×2 (12:30→18:21)
--- NOTE | 2021-05-03 16:54 | NUR ---
Patient in room CICU 2010. I have received report from Renu SHEPARD and had the opportunity to ask questions and assume patient care. Patient sitting up in chair, in no distress, vitals stable.
--- NOTE | 2021-05-03 18:21 | NUR ---
Problems reprioritized. Patient report given, questions answered & plan of care reviewed with Odette SHEPARD.
[2021-05-03] MEDS: Insulin Reg/NS 100units/100mL 100 ML IV SCH (19:46)
[2021-05-03] MEDS: atorvastatin 10mg tablet PO SCH (20:43)
[2021-05-04] VITALS (24 sets, daily range): BP systolic 99–132; BP diastolic 47–79
[2021-05-04] MEDS: HYDROcodone/acetaminophen 5mg/325mg tablet PO PRN ×2 (00:49→07:52)
[2021-05-04 03:06] LABS: ALBUMIN 2.8 G/DL (3.4-5.0); ANION GAP 6 (8-16); BASOPHILS % (AUTO) 0.1 % (0-1); BLOOD UREA NITROGEN 21 MG/DL (7-18); BUN/CREATININE RATIO 20.4 (5.4-32.0); CALCIUM 7.9 MG/DL (8.5-10.1); CHLORIDE 107 MMOL/L (99-107); CREATININE 1.03 MG/DL (0.60-1.10); EOSINOPHILS % (AUTO) 0 % (0-6); GLUCOSE 148 MG/DL (70-104); HEMATOCRIT 36.5 % (42.0-52.0); LYMPHOCYTES # (AUTO) 0.5 X10'3 (1.1-4.8); LYMPHOCYTES % (AUTO) 2.6 % (21-51); MAGNESIUM 2.1 MG/DL (1.5-2.4); MEAN CORPUSCULAR HEMOGLOBIN 29.5 PG (27.0-31.0); MEAN CORPUSCULAR HGB CONC 32.9 g/dL (33.0-36.5); MEAN CORPUSCULAR VOLUME 89.9 FL (78-98); MEAN PLATELET VOLUME 8.6 FL (7.4-10.4); MONOCYTES # (AUTO) 0.9 X10'3 (0-0.9); MONOCYTES % (AUTO) 5.3 % (2-12); PHOSPHORUS 3.2 MG/DL (2.3-4.5); PLATELET COUNT 156 X10'3 (140-440); POTASSIUM 4.6 MMOL/L (3.5-5.1); RED BLOOD COUNT 4.06 X10'6 (4.70-6.10); SODIUM 140 MMOL/L (135-145); TOTAL CARBON DIOXIDE 27.4 MMOL/L (24-32); WHITE BLOOD COUNT 17.4 X10'3 (4.5-11.0); eGFR 74 ML/MIN
[2021-05-04] MEDS: magnesium 2GM in 50ml NS 50 ML IV PRN (04:08)
--- NOTE | 2021-05-04 06:17 | NUR ---
Problems reprioritized. Patient report given, questions answered & plan of care reviewed with DREA Rodriguez.
[2021-05-04] MEDS: aspirin 325mg tablet, delayed-release (Ecotrin) PO SCH (07:43)
[2021-05-04] MEDS: metoprolol tartrate 12.5mg (1/2 tablet) PO SCH ×2 (07:43→20:44)
[2021-05-04] MEDS: pantoprazole 40mg Tablet.DR PO SCH (07:43)
[2021-05-04] MEDS: gabapentin 300mg capsule PO SCH (07:43)
[2021-05-04] MEDS: sennosides/docusate sodium tablet PO SCH ×2 (07:46→20:44)
[2021-05-04] MEDS: mupirocin 2% nasal ointment 1gm UD NS SCH (07:46)
[2021-05-04] MEDS ORDERED: furosemide 40mg/4ml inj IV ONE (08:45)
[2021-05-04] MEDS: sodium chloride 0.45% 1,000 ML IV SCH (12:10)
[2021-05-04] MEDS: JUVEN Shake w/Arg/Glut/Ca2+Bmb (Juven 19.3gm) pkt 240ml PO SCH ×2 (12:30→17:58)
--- NOTE | 2021-05-04 18:30 | NUR ---
Patient in room CICU 2013. I have received report from DREA Rodriguez and had the opportunity to ask questions and assume patient care.
[2021-05-04] MEDS: atorvastatin 10mg tablet PO SCH (20:44)
[2021-05-04] MEDS: Insulin Reg/NS 100units/100mL 100 ML IV SCH (20:44)
[2021-05-05] VITALS (24 sets, daily range): BP systolic 97–129; BP diastolic 54–83
[2021-05-05] MEDS: HYDROcodone/acetaminophen 5mg/325mg tablet PO PRN ×3 (00:02→19:57)
[2021-05-05 06:00] LABS: BASOPHILS % (AUTO) 0.1 % (0-1); EOSINOPHILS % (AUTO) 0.1 % (0-6); HEMATOCRIT 39.7 % (42.0-52.0); HEMOGLOBIN 13.1 g/dl (14.0-17.9); LYMPHOCYTES # (AUTO) 1.1 X10'3 (1.1-4.8); LYMPHOCYTES % (AUTO) 6.3 % (21-51); MEAN CORPUSCULAR HEMOGLOBIN 29.8 PG (27.0-31.0); MEAN CORPUSCULAR VOLUME 90.2 FL (78-98); MEAN PLATELET VOLUME 8.9 FL (7.4-10.4); MONOCYTES # (AUTO) 1.5 X10'3 (0-0.9); MONOCYTES % (AUTO) 8.6 % (2-12); NEUTROPHILS # (AUTO) 14.5 X10'3 (1.8-7.7); NEUTROPHILS % (AUTO) 84.9 % (42-75); PLATELET COUNT 191 X10'3 (140-440); RED CELL DISTRIBUTION WIDTH 15.1 % (11.5-14.5); WHITE BLOOD COUNT 17.1 X10'3 (4.5-11.0)
--- NOTE | 2021-05-05 06:06 | NUR ---
Problems reprioritized. Patient report given, questions answered & plan of care reviewed with DREA Rodriguez.
[2021-05-05 06:26] LABS: ALBUMIN 2.9 G/DL (3.4-5.0); ANION GAP 7 (8-16); BLOOD UREA NITROGEN 28 MG/DL (7-18); BUN/CREATININE RATIO 29.8 (5.4-32.0); CALCIUM 8.2 MG/DL (8.5-10.1); CHLORIDE 104 MMOL/L (99-107); CREATININE 0.94 MG/DL (0.60-1.10); GLUCOSE 135 MG/DL (70-104); MAGNESIUM 2.1 MG/DL (1.5-2.4); PHOSPHORUS 2.9 MG/DL (2.3-4.5); POTASSIUM 4.2 MMOL/L (3.5-5.1); SODIUM 141 MMOL/L (135-145); TOTAL CARBON DIOXIDE 30.3 MMOL/L (24-32); eGFR 82 ML/MIN
[2021-05-05] MEDS: pantoprazole 40mg Tablet.DR PO SCH (07:26)
[2021-05-05] MEDS: metoprolol tartrate 12.5mg (1/2 tablet) PO SCH ×2 (07:26→19:58)
[2021-05-05] MEDS: aspirin 325mg tablet, delayed-release (Ecotrin) PO SCH (07:26)
[2021-05-05] MEDS: sennosides/docusate sodium tablet PO SCH ×2 (07:26→19:58)
--- NOTE | 2021-05-05 12:21 | NUR ---
Initial: Pt presented with c/o CP and admit for NSTEMI and multivessel CAD. Pt s/p CABG x 3 POD #3. Pt seen at bedside provided with written and verbal heart healthy and nutrition s/p CABG nutrition therapy educations. Pt verbalized understanding and reports usually with a well balanced diet that limits sugar intake and emphasizes protein intake. Pt endorses a good appetite, currently on a heart healthy diet documented with 100% PO intake briefly down to 50-75% PO intake for four meals, however back up to 75-100% PO intake at breakfast this morning. Pt receiving double protein TID, a sandwich at 10:00 and 14:00, and a Zachery shake BIDLD with 75-100% PO intake of ONS. Pt reports getting full from meals and denies food allergies, difficulty chewing/swallowing, or difficulty feeding self with incision site. Pt reports feeling constipated with two BMs the morning of 05/04 following admin of PRN MoM. Pt receiving routine bowel care as well. Pt denies nutrition intervention at this time. Pt informed of additional PRN bowel care being available and encouraged pt to d/w RN when feeling constipated. Pt provided with RD contact information. Will continue to follow. Rec: 1. Continue heart healthy diet post-op; double eggs WB, double meat BIDLD; sandwich at 10:00 and 14:00 for additional food per PA request 2. Vanilla Zachery shake BIDLD for wound healing 3. Routine bowel care 4. Weekly scaled weights Addendum: 05/05/21 at [address] Amended: Links added.
[2021-05-05] MEDS: JUVEN Shake w/Arg/Glut/Ca2+Bmb (Juven 19.3gm) pkt 240ml PO SCH ×3 (12:30→20:00)
[2021-05-05] MEDS ORDERED: amiodarone 150mg/dext, iso-os 100 ML IV ONE (16:55)
--- NOTE | 2021-05-05 18:30 | NUR ---
Patient in room CICU 2013. I have received report from Michael SHEPARD and had the opportunity to ask questions and assume patient care.
[2021-05-05] MEDS: amiodarone 200mg tablet PO SCH (19:58)
[2021-05-05] MEDS: atorvastatin 10mg tablet PO SCH (20:00)
--- NOTE | 2021-05-05 22:37 | NUR ---
Problems reprioritized. Patient report given, questions answered & plan of care reviewed with Kristi SHEPARD.
[2021-05-06] VITALS (16 sets, daily range): BP systolic 90–140; BP diastolic 56–87
[2021-05-06 06:10] LABS: BASOPHILS % (AUTO) 0.1 % (0-1); EOSINOPHILS # (AUTO) 0.2 X10'3 (0-0.9); HEMATOCRIT 40.1 % (42.0-52.0); HEMOGLOBIN 13.4 g/dl (14.0-17.9); LYMPHOCYTES # (AUTO) 1.4 X10'3 (1.1-4.8); LYMPHOCYTES % (AUTO) 14.4 % (21-51); MEAN CORPUSCULAR HEMOGLOBIN 29.6 PG (27.0-31.0); MEAN CORPUSCULAR HGB CONC 33.4 g/dL (33.0-36.5); MEAN CORPUSCULAR VOLUME 88.7 FL (78-98); MEAN PLATELET VOLUME 8.3 FL (7.4-10.4); MONOCYTES # (AUTO) 1.2 X10'3 (0-0.9); MONOCYTES % (AUTO) 12.7 % (2-12); NEUTROPHILS # (AUTO) 6.9 X10'3 (1.8-7.7); NEUTROPHILS % (AUTO) 70.8 % (42-75); PLATELET COUNT 214 X10'3 (140-440); RED BLOOD COUNT 4.52 X10'6 (4.70-6.10); RED CELL DISTRIBUTION WIDTH 14.5 % (11.5-14.5); WHITE BLOOD COUNT 9.8 X10'3 (4.5-11.0)
--- NOTE | 2021-05-06 06:23 | NUR ---
Problems reprioritized. Patient report given, questions answered & plan of care reviewed with DREA Brewster.
[2021-05-06 06:54] LABS: ALBUMIN 2.5 G/DL (3.4-5.0); ANION GAP 5 (8-16); BLOOD UREA NITROGEN 23 MG/DL (7-18); BUN/CREATININE RATIO 26.4 (5.4-32.0); CHLORIDE 103 MMOL/L (99-107); CREATININE 0.87 MG/DL (0.60-1.10); GLUCOSE 107 MG/DL (70-104); MAGNESIUM 2.1 MG/DL (1.5-2.4); PHOSPHORUS 3.1 MG/DL (2.3-4.5); POTASSIUM 4.1 MMOL/L (3.5-5.1); SODIUM 139 MMOL/L (135-145); TOTAL CARBON DIOXIDE 30.8 MMOL/L (24-32); eGFR 90 ML/MIN
[2021-05-06] MEDS: amiodarone 200mg tablet PO SCH (07:36)
[2021-05-06] MEDS: sennosides/docusate sodium tablet PO SCH (07:36)
[2021-05-06] MEDS: aspirin 325mg tablet, delayed-release (Ecotrin) PO SCH (07:36)
[2021-05-06] MEDS: metoprolol tartrate 12.5mg (1/2 tablet) PO SCH (07:36)
[2021-05-06] MEDS: pantoprazole 40mg Tablet.DR PO SCH (07:36)
[2021-05-06] MEDS: sodium chloride 0.45% 1,000 ML IV SCH (07:44)
[2021-05-06] MEDS: Insulin Reg/NS 100units/100mL 100 ML IV SCH (07:45)
[2021-05-06] MEDS ORDERED: LOP12.5T PO (07:59)
[2021-05-06] MEDS ORDERED: AMIO200T67 PO ×2 (07:59)
[2021-05-06] MEDS ORDERED: HYDR-3964 PO (07:59)
[2021-05-06] MEDS ORDERED: SENN-283 PO (07:59)
[2021-05-06] MEDS ORDERED: ATOR10TA PO (07:59)
[2021-05-06] MEDS ORDERED: AMIO200T61 PO (10:59)
== END 2021-05-06 18:15 | disposition home or self-care (01) | DRG 233 ==
LOC: ER 15:19 → ED HOLD 18:17 → EDBEDREQ 19:01 → PCU 3S 19:30 → CICU 2S 05-02 11:40
PROVIDERS: ADMIT Family Medicine; ATTEND Family Medicine
PROC: 4A023N7 Measurement of Cardiac Sampling and Pressure, Left Heart, Percutaneous Approach (ICD-10-PCS; 2021-05-01)
PROC: B4101ZZ Fluoroscopy of Abdominal Aorta using Low Osmolar Contrast (ICD-10-PCS; 2021-05-01)
PROC: B2151ZZ Fluoroscopy of Left Heart using Low Osmolar Contrast (ICD-10-PCS; 2021-05-01)
PROC: B34HZZZ Ultrasonography of Right Upper Extremity Arteries (ICD-10-PCS; 2021-05-01)
PROC: B2111ZZ Fluoroscopy of Multiple Coronary Arteries using Low Osmolar Contrast (ICD-10-PCS; 2021-05-01)
PROC: 06BP3ZZ Excision of Right Saphenous Vein, Percutaneous Approach (ICD-10-PCS; 2021-05-02)
PROC: B24BZZ4 Ultrasonography of Heart with Aorta, Transesophageal (ICD-10-PCS; 2021-05-02)
PROC: 0212093 Bypass Coronary Artery, Three Arteries from Coronary Artery with Autologous Venous Tissue, Open Approach (ICD-10-PCS; principal; 2021-05-02 07:56)
DX: I25.110 Atherosclerotic heart disease of native coronary artery with unstable angina pectoris (principal); I21.4 Non-ST elevation (NSTEMI) myocardial infarction; I48.92 Unspecified atrial flutter; E78.5 Hyperlipidemia, unspecified; G89.4 Chronic pain syndrome; M51.16 Intervertebral disc disorders with radiculopathy, lumbar region; I25.2 Old myocardial infarction; Z82.49 Family history of ischemic heart disease and other diseases of the circulatory system; Z85.71 Personal history of Hodgkin lymphoma; Z85.72 Personal history of non-Hodgkin lymphomas; Z87.442 Personal history of urinary calculi; Z92.21 Personal history of antineoplastic chemotherapy
CPT/HCPCS: 0232T; 93308; 93312; 93325; 93458; 93567; 96372; 99285; Z7506; Z7508; 36415; 36600; 71045; 76937; 80048; 80053; 80061; 81003; 82330; 82435; 82803; 82947; 82948; 83036; 83735; 83880; 84100; 84132; 84295; 84484; 85018; 85025; 85347; 85384; 85610; 85730; 86885; 86900; 86901; 86920; 87081; 93005; 93880; 93971; 94002; 94010; 94760; 97110; 97116; 97162; 97530; 99152; 99153; A4618; A4620; A5120; A6258; A6402; A6449; A7000; A7048; C1713; C1751; C1769; C1894; C9113; G0378; J0690; J1644; J1650; J1815; J1940; J2001; J2060; J2150; J2250; J2270; J2440; J2704; J2720; J2930; J3010; J3370; J3475; J3480; J3490; J7030; J7040; J7050; J7060; J7120; P9045; P9047; Q9967

== ENCOUNTER 2021-05-07 18:01 | Emergency (ER) | payer BC ==
[~2021-05-07] VITALS: Ht 175.3 cm; Wt 81.8 kg
[~2021-05-07 18:01] MED LIST changes: +AMIO200T61 PO; +ATOR10TA PO; +DONE-46 PO; +HYDR-3964 PO; -LIDOcaine 2% (20 mg/ml) 5ml cardiac syringe ONE; +LOP12.5T PO; -MAGNESIUM SULFATE 4 MEQ/ML (5gm/10ml) injection ONE; -NO HOME MEDS; -NORepinephrine 1 mg/ml inj IV ONE; +SENN-283 PO; -albumin (human) 25% 100 ML IV solution IV ONE; -aminocaproic acid 250 MG/1 ML inj. ONE; -calcium chloride 100 MG/1 ML inj IV ONE; -heparin 1,000 units/ml 10ml inj ONE; -heparin 10,000 units/1 ML INJ ONE; -methylPREDNISolone sod succ 1000mg vial ONE; -papaverine 30 mg/ml 2ml inj. ONE; -sodium bicarbonate (8.4%) 1 mEq/ml syringe ONE
[2021-05-07 18:06] VITALS: BP 109/90
[2021-05-07 19:21] LABS: BASOPHILS % (AUTO) 0.4 % (0-1); EOSINOPHILS # (AUTO) 0.3 X10'3 (0-0.9); EOSINOPHILS % (AUTO) 2.8 % (0-6); HEMATOCRIT 43.2 % (42.0-52.0); HEMOGLOBIN 14.4 g/dl (14.0-17.9); LYMPHOCYTES # (AUTO) 2.2 X10'3 (1.1-4.8); LYMPHOCYTES % (AUTO) 18.5 % (21-51); MEAN CORPUSCULAR HEMOGLOBIN 29.8 PG (27.0-31.0); MEAN CORPUSCULAR HGB CONC 33.4 g/dL (33.0-36.5); MEAN PLATELET VOLUME 7.9 FL (7.4-10.4); MONOCYTES # (AUTO) 1.2 X10'3 (0-0.9); MONOCYTES % (AUTO) 10.4 % (2-12); NEUTROPHILS # (AUTO) 8.1 X10'3 (1.8-7.7); NEUTROPHILS % (AUTO) 67.9 % (42-75); PLATELET COUNT 313 X10'3 (140-440); RED BLOOD COUNT 4.85 X10'6 (4.70-6.10); RED CELL DISTRIBUTION WIDTH 14.5 % (11.5-14.5)
[2021-05-07 19:36] LABS: ALANINE AMINOTRANSFERASE 59 U/L (12-78); ALBUMIN/GLOBULIN RATIO 0.7 (1.1-1.5); ALKALINE PHOSPHATASE 75 IU/L (46-116); ANION GAP 8 (8-16); ASPARTATE AMINO TRANSFERASE 28 U/L (10-37); BILIRUBIN,TOTAL 0.7 MG/DL (0.1-1.0); BLOOD UREA NITROGEN 25 MG/DL (7-18); CHLORIDE 101 MMOL/L (99-107); CREATININE 1.19 MG/DL (0.60-1.10); GLUCOSE 112 MG/DL (70-104); POTASSIUM 4.6 MMOL/L (3.5-5.1); SODIUM 139 MMOL/L (135-145); TOTAL CARBON DIOXIDE 29.7 MMOL/L (24-32); TOTAL PROTEIN 7.4 G/DL (6.4-8.2); eGFR 63 ML/MIN
== END 2021-05-07 21:37 | disposition home or self-care (01) ==
LOC: ER 18:02
DX: S81.801A Unspecified open wound, right lower leg, initial encounter (principal); G89.29 Other chronic pain; Z87.442 Personal history of urinary calculi; Z98.890 Other specified postprocedural states; Z79.899 Other long term (current) drug therapy; Z88.1 Allergy status to other antibiotic agents; Z88.8 Allergy status to other drugs, medicaments and biological substances; X58.XXXA Exposure to other specified factors, initial encounter; Y93.89 Activity, other specified; Y92.89 Other specified places as the place of occurrence of the external cause; Y99.8 Other external cause status
CPT/HCPCS: 80053; 84145; 85025; 85610; 93971; 99284